=== PATIENT | male | born 1965 | race Caucasian/White ===

== ENCOUNTER 2021-01-15 18:41 | Inpatient (IN) | payer OTHER ==
[2021-01-15] MEDS ORDERED: MAG HYDROX/AL HYDROX/SIMETH 30 ML UNIT-DOSE CUP PO PRN (21:34)
[2021-01-15] MEDS ORDERED: ONDANSETRON *ODT* 4 MG TABLET SL PRN (21:34)
[2021-01-15] MEDS ORDERED: BISMUTH SUBSALICYLATE 524 MG/30 ML PO PRN (21:34)
[2021-01-15] MEDS ORDERED: cloNIDine HCL 0.1 MG TABLET PO PRN (21:34)
[2021-01-15] MEDS ORDERED: MAGNESIUM HYDROX 2400MG/30ML ORAL SUSPENSION 30 ML CUP PO PRN (21:34)
[2021-01-15] MEDS ORDERED: METHOCARBAMOL 500 MG TABLET PO PRN (21:34)
[2021-01-15] MEDS ORDERED: MENTHOL/PHENOL 1 EACH UD MM PRN (21:34)
[2021-01-15] MEDS ORDERED: METHADONE HCL 10 MG TABLET (FOR DETOX USE ONLY) PO ONE (21:34)
[2021-01-15] MEDS ORDERED: diazePAM 5 MG TABLET PO PRN (21:34)
[2021-01-15] MEDS ORDERED: ACETAMINOPHEN 325 MG TABLET (FP) PO PRN ×2 (21:34)
[2021-01-15] MEDS ORDERED: NICOTINE POLACRILEX 2 MG GUM BUC PRN (21:34)
[2021-01-15] MEDS ORDERED: MAGNESIUM CITRATE 300 ML BOTTLE PO PRN (21:34)
[2021-01-15] MEDS ORDERED: IBUPROFEN 400 MG TABLET (FP) PO PRN (21:34)
[2021-01-15] MEDS ORDERED: METHADONE HCL 10 MG TABLET (FOR DETOX USE ONLY) ONE (21:49)
[2021-01-15 22:13] VITALS: BMI 27.6
[2021-01-16] MEDS: THIAMINE HCL 100 MG TABLET (FP) PO SCH ×2 (00:46→22:53)
[2021-01-16] MEDS: MELATONIN 5 MG TABLETS PO SCH ×2 (00:46→22:54)
[2021-01-16] MEDS: diazePAM 5 MG TABLET PO SCH ×5 (00:47→22:53)
[2021-01-16] MEDS ORDERED: METHADONE HCL 5 MG TABLET (FOR DETOX USE ONLY) ONE (09:02)
[2021-01-16] MEDS ORDERED: METHADONE HCL 10 MG TABLET (FOR DETOX USE ONLY) ONE (09:02)
[2021-01-16] MEDS ORDERED: METHADONE (DETOX) 20 MG, METHADONE (DETOX) 5 MG PO ONE (10:00)
[2021-01-16 10:21] LABS: HEMATOCRIT 40.5 % (35.4-49); HEMOGLOBIN 13.8 GM/dL (11.7-16.9); MCH 31.1 pg (25.7-33.7); MEAN CELL VOLUME 91.5 fl (80-96); MEAN PLT VOLUME 7.8 fl (7.5-11.1); PLATELET COUNT 283 K/MM3 (134-434); RBC 4.43 M/mm3 (4.00-5.60)
[2021-01-16 10:30] LABS: ALBUMIN 3.3 g/dl (3.4-5.0); BLOOD UREA NITROGEN 11.3 mg/dL (7-18)
[2021-01-16 10:34] LABS: BILIRUBIN,TOTAL 0.4 mg/dL (0.2-1)
[2021-01-16 10:35] LABS: TOT PROT 6.1 g/dl (6.4-8.2)
[2021-01-16] MEDS: NICOTINE 21 MG/24 HOURS TOPICAL PATCH TD SCH (11:30)
[2021-01-16] MEDS: PRENATAL VITAMINS W/ FOLIC ACID TABLET (FP) PO SCH (11:30)
[2021-01-17] MEDS: diazePAM 5 MG TABLET PO SCH ×3 (05:42→23:10)
[2021-01-17] MEDS ORDERED: METHADONE HCL 10 MG TABLET (FOR DETOX USE ONLY) PO ONE (10:00)
[2021-01-17] MEDS: PRENATAL VITAMINS W/ FOLIC ACID TABLET (FP) PO SCH (10:22)
[2021-01-17] MEDS: NICOTINE 21 MG/24 HOURS TOPICAL PATCH TD SCH (10:22)
[2021-01-17] MEDS: THIAMINE HCL 100 MG TABLET (FP) PO SCH (23:10)
[2021-01-17] MEDS: MELATONIN 5 MG TABLETS PO SCH (23:11)
[2021-01-18] MEDS: diazePAM 5 MG TABLET PO SCH ×2 (05:45→17:39)
[2021-01-18] MEDS ORDERED: METHADONE HCL 5 MG TABLET (FOR DETOX USE ONLY) ONE (09:30)
[2021-01-18] MEDS ORDERED: METHADONE HCL 10 MG TABLET (FOR DETOX USE ONLY) ONE (09:31)
[2021-01-18] MEDS ORDERED: METHADONE (DETOX) 10 MG, METHADONE (DETOX) 5 MG PO ONE (10:00)
[2021-01-18] MEDS ORDERED: ACETAMINOPHEN 325 MG TABLET (FP) PO ONE (10:10)
[2021-01-18] MEDS ORDERED: LOPERAMIDE HCL 2 MG CAPSULE PO ONE (10:10)
[2021-01-18] MEDS ORDERED: METHOCARBAMOL 750 MG TAB PO ONE (10:15)
[2021-01-18] MEDS ORDERED: cloNIDine HCL 0.1 MG TABLET PO PRN (10:16)
[2021-01-18] MEDS: PRENATAL VITAMINS W/ FOLIC ACID TABLET (FP) PO SCH (10:21)
[2021-01-18] MEDS: NICOTINE 21 MG/24 HOURS TOPICAL PATCH TD SCH (10:23)
[2021-01-18] MEDS: THIAMINE HCL 100 MG TABLET (FP) PO SCH (22:37)
[2021-01-18] MEDS: MELATONIN 5 MG TABLETS PO SCH (22:37)
[2021-01-19] MEDS ORDERED: diazePAM 5 MG TABLET PO ONE (06:00)
[2021-01-19 09:17] VITALS: BP 112/80; PULSE 94; TEMP 98.3
[2021-01-19] MEDS ORDERED: METHADONE HCL 10 MG TABLET (FOR DETOX USE ONLY) PO ONE (10:00)
[2021-01-19 14:07] LABS: SARS-CoV-2 NAA Not Detected (Not Detected)
[2021-01-20] MEDS ORDERED: METHADONE HCL 5 MG TABLET (FOR DETOX USE ONLY) PO ONE (06:00)
== END 2021-01-19 09:21 | disposition home or self-care (01) | DRG 773 ==
LOC: YASAS 18:41 → Y6N 22:40
PROVIDERS: ADMIT Allergy & Immunology; ATTEND Allergy & Immunology
PROC: HZ2ZZZZ Detoxification Services for Substance Abuse Treatment (ICD-10-PCS; principal; 2021-01-15)
DX: F11.23 Opioid dependence with withdrawal (principal); F10.230 Alcohol dependence with withdrawal, uncomplicated; F14.20 Cocaine dependence, uncomplicated; F17.210 Nicotine dependence, cigarettes, uncomplicated; H53.8 Other visual disturbances; H91.93 Unspecified hearing loss, bilateral; R76.11 Nonspecific reaction to tuberculin skin test without active tuberculosis; R03.0 Elevated blood-pressure reading, without diagnosis of hypertension
CPT/HCPCS: 36415; 80053; 85027; 86780; C9803; J0735; Q0162; U0003; U0005